=== PATIENT | female | born 1935 | race Two or more races ===

== ENCOUNTER 2016-07-11 12:03 | Inpatient (IN) | payer OTHER, MEDICAID ==
[~2016-07-11] VITALS: Ht 165.1 cm; Wt 70.3 kg
[2016-07-11] MEDS ORDERED: SODIUM CHLORIDE 0.9% 500 ML IVB ONE (12:15)
[2016-07-11 12:48] LABS: Basophils # (auto) 0 uL; Basophils % (auto) 0.5 % (0.0-2.0); Eosinophils # (auto) 0.1 uL; Eosinophils % (auto) 2.1 % (0.0-7.0); Hematocrit 45.1 % (36.0-46.0); Hemoglobin 14.8 g/dL (12.2-16.2); Lymphocytes # (auto) 0.9 uL; Lymphocytes % (auto) 18.1 % (10.0-50.0); Mean Corpuscular Hemoglobin 30.3 pg (28.0-32.0); Mean Corpuscular Hgb Conc. 32.8 g/dL (32.0-36.0); Mean Corpuscular Volume 92.4 fL (80.0-100.0); Mean Platelet Volume 8.5 fL (7.4-10.4); Monocytes # (auto) 0.2 uL; Monocytes % (auto) 4.5 % (0.0-12.0); Neutrophils # (auto) 3.8 uL; Neutrophils % (auto) 74.8 % (37.0-80.0); Platelet Count (auto) 283 10^3/uL (140-450); Red Cell Distribution Width 14.1 % (11.6-16.0); White Blood Cell 5.1 10^3/uL (4.4-10.8)
[2016-07-11 13:01] LABS: INR 1.04 (0.9-1.15); Partial Thromboplastin Time 21.9 sec (22.64-33.71); Prothrombin Time 10.7 sec (9.37-12.3)
[2016-07-11 13:08] LABS: Albumin 3.5 g/dL (3.4-5.0); BUN/Creatinine Ratio 20.5; Bilirubin, Total 0.4 mg/dL (0.2-1.0); Magnesium 2.4 mg/dL (1.6-2.6); Potassium 4.3 mmol/L (3.5-5.1); Total Protein 7.1 g/dL (6.4-8.2)
[2016-07-11] MEDS ORDERED: ATOR10TA PO (14:50)
[2016-07-11] MEDS ORDERED: ISOS30TA4 PO (14:50)
[2016-07-11] MEDS ORDERED: LORA-622 PO (14:50)
[2016-07-11] MEDS ORDERED: QUET50TA PO (14:52)
[2016-07-11] MEDS ORDERED: CARV12.544 PO (14:52)
[2016-07-11] MEDS ORDERED: TIMO0.5S40 EACHEYE (14:52)
[2016-07-11] MEDS ORDERED: AMLO-412 PO (14:52)
[2016-07-11] MEDS ORDERED: RIV15T PO (14:52)
[2016-07-11] MEDS ORDERED: SERT-274 PO (14:52)
[2016-07-11 15:41] LABS: B-Type Natriuretic Peptide 93.41 pg/mL (0-100)
[2016-07-11] MEDS ORDERED: DEXTROSE (50%) 50ML SYRG IV PRN (18:45)
[2016-07-11] MEDS ORDERED: VALSARTAN 80 MG TAB PO ONE (18:57)
[2016-07-11] MEDS ORDERED: HYDROcodone-ACET 5/325MG TAB PO PRN (19:00)
[2016-07-11] MEDS ORDERED: TEMAZEPAM 15 MG CAP PO PRN (19:00)
[2016-07-11] MEDS ORDERED: ONDANSETRON HCL 4 MG/2 ML VIAL IV PRN (19:00)
[2016-07-11] MEDS ORDERED: ASPirin-EC 81 mg tab PO ONE (19:00)
[2016-07-11] MEDS: RIVAROXABAN 15 MG TAB PO SCH (19:00)
[2016-07-11] MEDS ORDERED: LORATADINE 10 MG TAB PO ONE (19:00)
[2016-07-11] MEDS ORDERED: ACETAMINOPHEN 325 MG TAB PO PRN (19:00)
[2016-07-11] MEDS ORDERED: SERTRALINE HCL 50 MG TAB PO ONE (19:00)
[2016-07-11] MEDS ORDERED: MORPHINE SULF INJ 2 MG/ML SYRINGE 1ML IV PRN ×2 (19:00)
[2016-07-11] MEDS ORDERED: ISOSORBIDE MONONITRATE 60 MG TAB PO ONE (19:00)
[2016-07-11] MEDS ORDERED: NITROGLYCERIN 0.4 MG SL TAB SL PRN (19:00)
[2016-07-11] MEDS ORDERED: DOCUSATE SOD 100 MG CAP PO PRN (19:00)
[2016-07-11] MEDS ORDERED: amLODIPine BESYLATE 5 MG TAB PO ONE (19:00)
[2016-07-11] MEDS: FAMOTIDINE 20 MG TAB PO SCH (21:13)
[2016-07-11] MEDS: MULTIPLE VITAMIN TAB PO SCH (21:16)
[2016-07-11 21:38] VITALS: BP 152/85
[2016-07-11] MEDS: ATORVASTATIN 20 MG TAB PO SCH (22:00)
[2016-07-11] MEDS: ACCU-CHEK COMFORT CURVE STRIP VI SCH (22:00)
[2016-07-11] MEDS: InsuLIN REG 1unit/0.01ml Soln (100units/ml) SC SCH (22:00)
[2016-07-11] MEDS: CARVEDILOL 3.125 MG TAB PO SCH (23:09)
[2016-07-11] MEDS: SODIUM CHLOR 0.9% PF (SALINE LOCK) 10ML VIAL IV SCH (23:13)
[2016-07-12 03:59] LABS: Urine RBC None Seen /hpf (0 - 4)
[2016-07-12 04:59] LABS: Urine Bilirubin Negative (Negative); Urine Blood Negative /uL (Negative); Urine Color Colorless (Yellow); Urine Glucose Normal (Normal); Urine Ketone Negative (Negative); Urine Nitrite Negative (Negative); Urine Urobilinogen Normal (Negative); Urine pH 5.5 (5.0-8.0)
[2016-07-12 05:34] VITALS: BP 133/71
[2016-07-12] MEDS: SODIUM CHLOR 0.9% PF (SALINE LOCK) 10ML VIAL IV SCH ×3 (05:53→21:22)
[2016-07-12 06:26] LABS: Basophils # (auto) 0 uL; Basophils % (auto) 0.6 % (0.0-2.0); Eosinophils # (auto) 0.1 uL; Eosinophils % (auto) 2.2 % (0.0-7.0); Hematocrit 40.3 % (36.0-46.0); Hemoglobin 13.6 g/dL (12.2-16.2); Lymphocytes # (auto) 1.4 uL; Lymphocytes % (auto) 28.5 % (10.0-50.0); Mean Corpuscular Hemoglobin 30.6 pg (28.0-32.0); Mean Corpuscular Hgb Conc. 33.6 g/dL (32.0-36.0); Mean Corpuscular Volume 90.9 fL (80.0-100.0); Mean Platelet Volume 8.9 fL (7.4-10.4); Monocytes # (auto) 0.4 uL; Monocytes % (auto) 8.3 % (0.0-12.0); Neutrophils # (auto) 3.1 uL; Neutrophils % (auto) 60.4 % (37.0-80.0); Platelet Count (auto) 225 10^3/uL (140-450); White Blood Cell 5.1 10^3/uL (4.4-10.8)
[2016-07-12 06:31] LABS: Albumin 3.3 g/dL (3.4-5.0); BUN/Creatinine Ratio 20.2; Bilirubin, Total 0.4 mg/dL (0.2-1.0); Calcium 8.6 mg/dL (8.5-10.1); Potassium 3.8 mmol/L (3.5-5.1); Total Protein 6.3 g/dL (6.4-8.2)
[2016-07-12] MEDS: ACCU-CHEK COMFORT CURVE STRIP VI SCH ×4 (06:39→21:23)
[2016-07-12] MEDS: InsuLIN REG 1unit/0.01ml Soln (100units/ml) SC SCH ×4 (06:39→21:23)
[2016-07-12 08:47] VITALS: BP 141/70
[2016-07-12] MEDS: VALSARTAN 80 MG TAB PO SCH (10:05)
[2016-07-12] MEDS: ISOSORBIDE MONONITRATE 60 MG TAB PO SCH (10:06)
[2016-07-12] MEDS: CARVEDILOL 3.125 MG TAB PO SCH ×2 (10:08→21:22)
[2016-07-12] MEDS: FAMOTIDINE 20 MG TAB PO SCH (10:08)
[2016-07-12] MEDS: MULTIPLE VITAMIN TAB PO SCH (10:09)
[2016-07-12] MEDS: ASPirin-EC 81 mg tab PO SCH (10:09)
[2016-07-12] MEDS: amLODIPine BESYLATE 5 MG TAB PO SCH (10:09)
[2016-07-12] MEDS: LORATADINE 10 MG TAB PO SCH (10:09)
[2016-07-12] MEDS: SERTRALINE HCL 50 MG TAB PO SCH (10:09)
[2016-07-12 13:00] VITALS: BP 109/46
[2016-07-12 17:00] VITALS: BP 140/74
[2016-07-12] MEDS: TIMOLOL MAL 0.5% OPTH(EYE) SOL 5ML EACHEYE SCH (17:08)
[2016-07-12] MEDS: RIVAROXABAN 15 MG TAB PO SCH (18:30)
[2016-07-12] MEDS: ATORVASTATIN 20 MG TAB PO SCH (21:23)
[2016-07-12 22:00] VITALS: BP 161/87
[2016-07-13 05:55] VITALS: BP 137/66
[2016-07-13] MEDS: InsuLIN REG 1unit/0.01ml Soln (100units/ml) SC SCH ×4 (06:11→21:45)
[2016-07-13] MEDS: ACCU-CHEK COMFORT CURVE STRIP VI SCH ×4 (06:11→21:45)
[2016-07-13] MEDS: SODIUM CHLOR 0.9% PF (SALINE LOCK) 10ML VIAL IV SCH ×3 (06:12→21:44)
[2016-07-13 06:36] LABS: BUN/Creatinine Ratio 19.2; Calcium 8.5 mg/dL (8.5-10.1); Magnesium 2.3 mg/dL (1.6-2.6); Phosphorus 3.6 mg/dL (2.6-4.90)
[2016-07-13 07:39] LABS: Basophils # (auto) 0.1 uL; Basophils % (auto) 1.5 % (0.0-2.0); Eosinophils # (auto) 0.1 uL; Eosinophils % (auto) 2.8 % (0.0-7.0); Hematocrit 41.4 % (36.0-46.0); Hemoglobin 13.8 g/dL (12.2-16.2); Lymphocytes # (auto) 1.5 uL; Lymphocytes % (auto) 30.9 % (10.0-50.0); Mean Corpuscular Hemoglobin 30.8 pg (28.0-32.0); Mean Corpuscular Hgb Conc. 33.2 g/dL (32.0-36.0); Mean Corpuscular Volume 92.6 fL (80.0-100.0); Mean Platelet Volume 9.2 fL (7.4-10.4); Monocytes # (auto) 0.6 uL; Monocytes % (auto) 11.7 % (0.0-12.0); Neutrophils # (auto) 2.5 uL; Neutrophils % (auto) 53.1 % (37.0-80.0); Platelet Count (auto) 178 10^3/uL (140-450); Red Cell Distribution Width 13.1 % (11.6-16.0); White Blood Cell 4.8 10^3/uL (4.4-10.8)
[2016-07-13 09:00] VITALS: BP 117/51
[2016-07-13] MEDS: ISOSORBIDE MONONITRATE 60 MG TAB PO SCH (10:00)
[2016-07-13] MEDS: VALSARTAN 80 MG TAB PO SCH (10:00)
[2016-07-13] MEDS: amLODIPine BESYLATE 5 MG TAB PO SCH (10:00)
[2016-07-13] MEDS: TIMOLOL MAL 0.5% OPTH(EYE) SOL 5ML EACHEYE SCH (10:00)
[2016-07-13] MEDS: CARVEDILOL 3.125 MG TAB PO SCH ×2 (10:00→21:45)
[2016-07-13] MEDS: LORATADINE 10 MG TAB PO SCH (12:37)
[2016-07-13] MEDS: ASPirin-EC 81 mg tab PO SCH (12:38)
[2016-07-13] MEDS: MULTIPLE VITAMIN TAB PO SCH (12:39)
[2016-07-13] MEDS: FAMOTIDINE 20 MG TAB PO SCH (12:39)
[2016-07-13] MEDS: SERTRALINE HCL 50 MG TAB PO SCH (12:39)
[2016-07-13 13:00] VITALS: BP 114/56
[2016-07-13 16:57] LABS: Vitamin B12 785 pg/mL (211-911)
[2016-07-13 17:00] VITALS: BP 161/74
[2016-07-13 17:01] LABS: Temperature: 22.7 C (20.0-25.0)
[2016-07-13] MEDS ORDERED: METOPROLOL TARTRATE 1MG/1ML-5ML VIAL IV ONE (17:30)
[2016-07-13] MEDS: RIVAROXABAN 15 MG TAB PO SCH (18:56)
[2016-07-13] MEDS: ATORVASTATIN 20 MG TAB PO SCH (21:45)
[2016-07-13 22:00] VITALS: BP 139/68
[2016-07-14 05:36] VITALS: BP 144/70
[2016-07-14] MEDS: SODIUM CHLOR 0.9% PF (SALINE LOCK) 10ML VIAL IV SCH ×2 (06:00→15:31)
[2016-07-14 06:01] LABS: Basophils # (auto) 0 uL; Basophils % (auto) 0.4 % (0.0-2.0); Eosinophils # (auto) 0.1 uL; Eosinophils % (auto) 2.2 % (0.0-7.0); Hematocrit 41.9 % (36.0-46.0); Hemoglobin 13.8 g/dL (12.2-16.2); Lymphocytes # (auto) 1.5 uL; Lymphocytes % (auto) 30.1 % (10.0-50.0); Mean Corpuscular Hemoglobin 30.2 pg (28.0-32.0); Mean Corpuscular Hgb Conc. 32.8 g/dL (32.0-36.0); Mean Platelet Volume 8.6 fL (7.4-10.4); Monocytes # (auto) 0.5 uL; Monocytes % (auto) 10.3 % (0.0-12.0); Neutrophils # (auto) 2.8 uL; Platelet Count (auto) 253 10^3/uL (140-450); Red Cell Distribution Width 14.3 % (11.6-16.0)
[2016-07-14 06:15] LABS: Magnesium 2.5 mg/dL (1.6-2.6); Potassium 4.7 mmol/L (3.5-5.1)
[2016-07-14 06:17] LABS: BUN/Creatinine Ratio 20.8; Calcium 8.3 mg/dL (8.5-10.1)
[2016-07-14] MEDS: InsuLIN REG 1unit/0.01ml Soln (100units/ml) SC SCH ×2 (07:00→11:30)
[2016-07-14] MEDS: ACCU-CHEK COMFORT CURVE STRIP VI SCH ×2 (07:00→11:30)
[2016-07-14 09:00] VITALS: BP 139/62
[2016-07-14] MEDS: VALSARTAN 80 MG TAB PO SCH (09:38)
[2016-07-14] MEDS: MULTIPLE VITAMIN TAB PO SCH (09:39)
[2016-07-14] MEDS: CARVEDILOL 3.125 MG TAB PO SCH (09:39)
[2016-07-14] MEDS: amLODIPine BESYLATE 5 MG TAB PO SCH (09:39)
[2016-07-14] MEDS: LORATADINE 10 MG TAB PO SCH (09:40)
[2016-07-14] MEDS: SERTRALINE HCL 50 MG TAB PO SCH (09:40)
[2016-07-14] MEDS: FAMOTIDINE 20 MG TAB PO SCH (09:40)
[2016-07-14] MEDS: ASPirin-EC 81 mg tab PO SCH (09:41)
[2016-07-14] MEDS: ISOSORBIDE MONONITRATE 60 MG TAB PO SCH (09:41)
[2016-07-14] MEDS: TIMOLOL MAL 0.5% OPTH(EYE) SOL 5ML EACHEYE SCH (09:42)
[2016-07-14 13:00] VITALS: BP 121/52
[2016-07-14 17:00] VITALS: BP 116/53
[2016-07-14 17:04] VITALS: BP 124/89
== END 2016-07-14 18:30 | disposition home health service (06) | DRG 315 ==
LOC: ER 12:10 → TELE 12:11 → TELE-WESTW 21:23
PROVIDERS: ADMIT Internal Medicine; ATTEND Internal Medicine
DX: I95.9 Hypotension, unspecified (principal); I13.0 Hypertensive heart and chronic kidney disease with heart failure and stage 1 through stage 4 chronic kidney disease, or unspecified chronic kidney disease; I50.42 Chronic combined systolic (congestive) and diastolic (congestive) heart failure; S42.434A Nondisplaced fracture (avulsion) of lateral epicondyle of right humerus, initial encounter for closed fracture; G90.8 Other disorders of autonomic nervous system; R42 Dizziness and giddiness; E11.21 Type 2 diabetes mellitus with diabetic nephropathy; E11.22 Type 2 diabetes mellitus with diabetic chronic kidney disease; E11.65 Type 2 diabetes mellitus with hyperglycemia; E78.5 Hyperlipidemia, unspecified; F32.9 Major depressive disorder, single episode, unspecified; F41.9 Anxiety disorder, unspecified; H40.9 Unspecified glaucoma; I25.10 Atherosclerotic heart disease of native coronary artery without angina pectoris; I34.0 Nonrheumatic mitral (valve) insufficiency; I67.2 Cerebral atherosclerosis; M10.9 Gout, unspecified; N18.3 Chronic kidney disease, stage 3 (moderate); S50.11XA Contusion of right forearm, initial encounter; W19.XXXA Unspecified fall, initial encounter; Z95.5 Presence of coronary angioplasty implant and graft; Z79.899 Other long term (current) drug therapy; Z79.01 Long term (current) use of anticoagulants; Y93.89 Activity, other specified; Y92.89 Other specified places as the place of occurrence of the external cause; Z82.49 Family history of ischemic heart disease and other diseases of the circulatory system
CPT/HCPCS: 36415; 70450; 71010; 73080; 73090; 80048; 80053; 81001; 82607; 82746; 82962; 83036; 83735; 83880; 84100; 84443; 84484; 85025; 85610; 85730; 87040; 92610; 93005; 93306; 93886; 96360; 97001

== ENCOUNTER 2017-01-10 09:32 | Inpatient (IN) | payer OTHER, MEDICAID ==
[~2017-01-10] VITALS: Ht 160 cm; Wt 71.1 kg
[~2017-01-10 09:32] MED LIST: AMLO-412 PO; ATOR10TA PO; CARV12.544 PO; ISOS30TA4 PO; LORA-622 PO; QUET50TA PO; RIV15T PO; SERT-274 PO; TIMO0.5S40 EACHEYE
[2017-01-10] MEDS ORDERED: ENOXAPARIN SOD 100 MG/1 ML SYRINGE SC ONE (10:30)
[2017-01-10 11:16] LABS: Basophils # (auto) 0 uL; Basophils % (auto) 0.2 % (0.0-2.0); CONDITION Y; Eosinophils # (auto) 0 uL; Eosinophils % (auto) 0.4 % (0.0-7.0); Hematocrit 44.3 % (36.0-46.0); Hemoglobin 14.9 g/dL (12.2-16.2); Lymphocytes # (auto) 1.4 uL; Lymphocytes % (auto) 13.7 % (10.0-50.0); Mean Corpuscular Hemoglobin 31.3 pg (28.0-32.0); Mean Corpuscular Hgb Conc. 33.7 g/dL (32.0-36.0); Mean Platelet Volume 7.7 fL (7.4-10.4); Monocytes # (auto) 0.9 uL; Monocytes % (auto) 9.3 % (0.0-12.0); Neutrophils # (auto) 7.5 uL; Neutrophils % (auto) 76.4 % (37.0-80.0); Platelet Count (auto) 256 10^3/uL (140-450); Red Cell Distribution Width 14.6 % (11.6-16.0); White Blood Cell 9.9 10^3/uL (4.4-10.8)
[2017-01-10 11:29] LABS: INR 0.98 (0.9-1.15); Prothrombin Time 10.7 sec (9.37-12.3)
[2017-01-10 11:42] LABS: Albumin 3.4 g/dL (3.4-5.0); Alkaline Phosphatase 87 U/L (45-117); Anion Gap 9 (5-15); Aspartate Aminotransferase 21 U/L (15-37); BUN/Creatinine Ratio 15.1; Bilirubin, Total 0.6 mg/dL (0.2-1.0); Blood Urea Nitrogen 18 mg/dL (7-18); Calcium 8.7 mg/dL (8.5-10.1); Carbon Dioxide 24 mmol/L (21-32); Chloride 99 mmol/L (98-107); GFR African American 56 mL/min; GFR Non-African American 46 mL/min; Glucose 108 mg/dL (74-106); Magnesium 2.8 mg/dL (1.6-2.6); Potassium 4.2 mmol/L (3.5-5.1); Sodium 132 mmol/L (136-145); Total Protein 7.7 g/dL (6.4-8.2)
[2017-01-10] MEDS: SODIUM CHLOR 0.9% PF (SALINE LOCK) 10ML VIAL IV SCH ×2 (14:00→21:52)
[2017-01-10] MEDS ORDERED: HYDROcodone-ACET 5/325MG TAB PO PRN (14:00)
[2017-01-10] MEDS ORDERED: DOCUSATE SOD 100 MG CAP PO PRN (14:00)
[2017-01-10] MEDS ORDERED: cloNIDine HCL 0.1 MG TAB PO PRN (14:00)
[2017-01-10] MEDS ORDERED: TEMAZEPAM 15 MG CAP PO PRN (14:00)
[2017-01-10] MEDS ORDERED: ONDANSETRON HCL 4 MG/2 ML VIAL IV PRN (14:00)
[2017-01-10] MEDS ORDERED: NITROGLYCERIN 0.4 MG SL TAB SL PRN (14:00)
[2017-01-10] MEDS ORDERED: MORPHINE SULFATE 4 MG/ML SYRG IV PRN ×2 (14:00)
[2017-01-10] MEDS ORDERED: ACETAMINOPHEN 325 MG TAB PO PRN (14:00)
[2017-01-10] MEDS ORDERED: HCTZ 25 MG TAB PO ONE (14:15)
[2017-01-10] MEDS ORDERED: FAMOTIDINE 20 MG TAB PO ONE (14:15)
[2017-01-10] MEDS ORDERED: LORATADINE 10 MG TAB PO ONE (14:15)
[2017-01-10] MEDS ORDERED: SERTRALINE HCL 50 MG TAB PO ONE (14:15)
[2017-01-10] MEDS ORDERED: PROMETHAZINE-DM 5 ML ORAL SYRUP PO PRN (14:15)
[2017-01-10] MEDS ORDERED: QUEtiapine FUMARATE 25 MG TAB PO ONE (14:15)
[2017-01-10] MEDS ORDERED: VALSARTAN 80 MG TAB PO ONE (14:15)
[2017-01-10] MEDS ORDERED: cefTRIAXone 1GM/50ML D5W 50 ML IV ONE (14:15)
[2017-01-10] MEDS ORDERED: amLODIPine BESYLATE 5 MG TAB PO ONE (14:15)
[2017-01-10] MEDS ORDERED: ISOSORBIDE MONONITRATE 60 MG TAB PO ONE (14:15)
[2017-01-10] MEDS ORDERED: CARVEDILOL 3.125 MG TAB PO ONE (14:15)
[2017-01-10 14:56] LABS: Urine Bilirubin Negative (Negative); Urine Blood Negative /uL (Negative); Urine Color Yellow (Yellow); Urine Glucose Normal (Normal); Urine Ketone TRACE (Negative); Urine Mucus FEW (None Seen); Urine Nitrite Negative (Negative); Urine RBC <1 /hpf (0 - 4); Urine Squamous Epithelial Cell FEW /hpf (<5); Urine Urobilinogen Normal (Negative); Urine pH 5.5 (5.0-8.0)
[2017-01-10] MEDS ORDERED: ONDANSETRON HCL 4 MG/2 ML VIAL ONE (17:22)
[2017-01-10 20:12] VITALS: BP 119/59
[2017-01-10 21:31] VITALS: BP 119/59
[2017-01-10] MEDS: CARVEDILOL 3.125 MG TAB PO SCH ×2 (21:53→22:00)
[2017-01-10] MEDS: ENOXAPARIN SOD 80 MG/0.8ML SYRINGE SC SCH (21:54)
[2017-01-10] MEDS: QUEtiapine FUMARATE 25 MG TAB PO SCH (21:54)
[2017-01-10] MEDS: ATORVASTATIN 20 MG TAB PO SCH (21:54)
[2017-01-10] MEDS ORDERED: ENOXAPARIN SOD 100 MG/1 ML SYRINGE SC SCH (22:00)
[2017-01-10] MEDS ORDERED: FAMOTIDINE 20 MG TAB PO SCH (22:00)
[2017-01-11] VITALS (7 sets, daily range): BP systolic 95–142; BP diastolic 38–67
[2017-01-11 06:08] LABS: Basophils # (auto) 0 uL; Basophils % (auto) 0.4 % (0.0-2.0); CONDITION Y; Eosinophils # (auto) 0 uL; Eosinophils % (auto) 0.4 % (0.0-7.0); Hemoglobin 12.6 g/dL (12.2-16.2); Lymphocytes # (auto) 1.7 uL; Lymphocytes % (auto) 20.2 % (10.0-50.0); Mean Corpuscular Hemoglobin 31.2 pg (28.0-32.0); Mean Corpuscular Volume 91.8 fL (80.0-100.0); Mean Platelet Volume 7.7 fL (7.4-10.4); Monocytes # (auto) 0.8 uL; Monocytes % (auto) 9.4 % (0.0-12.0); Neutrophils # (auto) 5.9 uL; Neutrophils % (auto) 69.6 % (37.0-80.0); Platelet Count (auto) 235 10^3/uL (140-450); Red Cell Distribution Width 14.4 % (11.6-16.0); White Blood Cell 8.5 10^3/uL (4.4-10.8)
[2017-01-11] MEDS: SODIUM CHLOR 0.9% PF (SALINE LOCK) 10ML VIAL IV SCH ×3 (06:18→21:16)
[2017-01-11 06:25] LABS: Albumin 2.7 g/dL (3.4-5.0); BUN/Creatinine Ratio 21.4; Bilirubin, Total 0.4 mg/dL (0.2-1.0); Calcium 8.3 mg/dL (8.5-10.1); Potassium 4.2 mmol/L (3.5-5.1); Total Protein 6.3 g/dL (6.4-8.2)
[2017-01-11] MEDS: cefTRIAXone 1GM/50ML D5W 50 ML IV SCH (08:18)
[2017-01-11] MEDS: LORATADINE 10 MG TAB PO SCH (09:21)
[2017-01-11] MEDS: MULTIPLE VITAMIN TAB PO SCH (09:21)
[2017-01-11] MEDS: FAMOTIDINE 20 MG TAB PO SCH (09:39)
[2017-01-11] MEDS: QUEtiapine FUMARATE 25 MG TAB PO SCH ×2 (09:39→21:15)
[2017-01-11] MEDS: ENOXAPARIN SOD 80 MG/0.8ML SYRINGE SC SCH (09:39)
[2017-01-11] MEDS: SERTRALINE HCL 50 MG TAB PO SCH (09:39)
[2017-01-11] MEDS: ISOSORBIDE MONONITRATE 60 MG TAB PO SCH (09:40)
[2017-01-11] MEDS: VALSARTAN 80 MG TAB PO SCH (09:40)
[2017-01-11] MEDS: amLODIPine BESYLATE 5 MG TAB PO SCH (09:40)
[2017-01-11] MEDS: CARVEDILOL 3.125 MG TAB PO SCH ×2 (09:41→22:00)
[2017-01-11] MEDS: TIMOLOL MAL 0.5% OPTH(EYE) SOL 5ML EACHEYE SCH (09:42)
[2017-01-11] MEDS: HCTZ 25 MG TAB PO SCH (10:00)
[2017-01-11] MEDS: APIXABAN 5 MG TAB PO SCH (21:15)
[2017-01-11] MEDS ORDERED: ENOXAPARIN SOD 80 MG/0.8ML SYRINGE SC SCH (22:00)
[2017-01-11] MEDS: ATORVASTATIN 20 MG TAB PO SCH (22:05)
[2017-01-12 05:09] VITALS: BP 126/58
[2017-01-12] MEDS: SODIUM CHLOR 0.9% PF (SALINE LOCK) 10ML VIAL IV SCH ×3 (06:14→22:09)
[2017-01-12] MEDS: cefTRIAXone 1GM/50ML D5W 50 ML IV SCH (09:00)
[2017-01-12 09:21] VITALS: BP 141/73
[2017-01-12] MEDS: TIMOLOL MAL 0.5% OPTH(EYE) SOL 5ML EACHEYE SCH (10:00)
[2017-01-12] MEDS: CARVEDILOL 3.125 MG TAB PO SCH ×2 (10:46→21:58)
[2017-01-12] MEDS: MULTIPLE VITAMIN TAB PO SCH (10:47)
[2017-01-12] MEDS: FAMOTIDINE 20 MG TAB PO SCH (10:47)
[2017-01-12] MEDS: APIXABAN 5 MG TAB PO SCH ×2 (10:47→21:57)
[2017-01-12] MEDS: SERTRALINE HCL 50 MG TAB PO SCH (10:47)
[2017-01-12] MEDS: QUEtiapine FUMARATE 25 MG TAB PO SCH ×2 (10:47→21:57)
[2017-01-12] MEDS: VALSARTAN 80 MG TAB PO SCH (10:48)
[2017-01-12] MEDS: ISOSORBIDE MONONITRATE 60 MG TAB PO SCH (10:49)
[2017-01-12] MEDS: amLODIPine BESYLATE 5 MG TAB PO SCH (10:49)
[2017-01-12] MEDS: LORATADINE 10 MG TAB PO SCH (10:50)
[2017-01-12] MEDS: HCTZ 25 MG TAB PO SCH (10:50)
[2017-01-12 13:00] VITALS: BP 120/63
[2017-01-12 17:31] VITALS: BP 101/70
[2017-01-12 20:00] VITALS: BP 133/68
[2017-01-12] MEDS: ATORVASTATIN 20 MG TAB PO SCH (21:57)
[2017-01-12 22:00] VITALS: BP 133/68
[2017-01-13 04:52] VITALS: BP 140/74
[2017-01-13] MEDS: SODIUM CHLOR 0.9% PF (SALINE LOCK) 10ML VIAL IV SCH ×3 (05:52→21:55)
[2017-01-13 08:00] VITALS: BP 140/74
[2017-01-13 09:00] VITALS: BP 146/78
[2017-01-13] MEDS: TIMOLOL MAL 0.5% OPTH(EYE) SOL 5ML EACHEYE SCH (09:38)
[2017-01-13] MEDS: HCTZ 25 MG TAB PO SCH (09:38)
[2017-01-13] MEDS: APIXABAN 5 MG TAB PO SCH ×2 (09:39→21:54)
[2017-01-13] MEDS: FAMOTIDINE 20 MG TAB PO SCH (09:39)
[2017-01-13] MEDS: CARVEDILOL 3.125 MG TAB PO SCH ×2 (09:39→21:55)
[2017-01-13] MEDS: ISOSORBIDE MONONITRATE 60 MG TAB PO SCH (09:39)
[2017-01-13] MEDS: VALSARTAN 80 MG TAB PO SCH (09:40)
[2017-01-13] MEDS: SERTRALINE HCL 50 MG TAB PO SCH (09:40)
[2017-01-13] MEDS: amLODIPine BESYLATE 5 MG TAB PO SCH (09:40)
[2017-01-13] MEDS: LORATADINE 10 MG TAB PO SCH (09:40)
[2017-01-13] MEDS: MULTIPLE VITAMIN TAB PO SCH (09:40)
[2017-01-13] MEDS: QUEtiapine FUMARATE 25 MG TAB PO SCH ×2 (09:41→21:54)
[2017-01-13 13:00] VITALS: BP 99/42
[2017-01-13 17:02] VITALS: BP 119/67
[2017-01-13] MEDS: ATORVASTATIN 20 MG TAB PO SCH (21:54)
[2017-01-13 22:00] VITALS: BP 138/78
[2017-01-14 05:00] VITALS: BP 130/74
[2017-01-14] MEDS: SODIUM CHLOR 0.9% PF (SALINE LOCK) 10ML VIAL IV SCH (06:32)
[2017-01-14 08:00] VITALS: BP 130/70
[2017-01-14 08:45] VITALS: BP 132/68
[2017-01-14] MEDS: TIMOLOL MAL 0.5% OPTH(EYE) SOL 5ML EACHEYE SCH (10:07)
[2017-01-14] MEDS: LORATADINE 10 MG TAB PO SCH (10:08)
[2017-01-14] MEDS: MULTIPLE VITAMIN TAB PO SCH (10:08)
[2017-01-14] MEDS: SERTRALINE HCL 50 MG TAB PO SCH (10:08)
[2017-01-14] MEDS: APIXABAN 5 MG TAB PO SCH (10:09)
[2017-01-14] MEDS: QUEtiapine FUMARATE 25 MG TAB PO SCH (10:09)
[2017-01-14] MEDS: FAMOTIDINE 20 MG TAB PO SCH (10:10)
[2017-01-14] MEDS: amLODIPine BESYLATE 5 MG TAB PO SCH (10:11)
[2017-01-14] MEDS: CARVEDILOL 3.125 MG TAB PO SCH (10:12)
[2017-01-14] MEDS: VALSARTAN 80 MG TAB PO SCH (10:15)
[2017-01-14] MEDS: ISOSORBIDE MONONITRATE 60 MG TAB PO SCH (10:16)
[2017-01-14] MEDS: HCTZ 25 MG TAB PO SCH (10:16)
[2017-01-14] MEDS ORDERED: HYDR-4663 PO (11:08)
[2017-01-14] MEDS ORDERED: APIX5TAB PO (11:08)
[2017-01-14 13:00] VITALS: BP 142/71
[2017-01-14 16:51] VITALS: BP 132/68
[2017-01-14 17:00] VITALS: BP 113/64
[2017-01-18] MEDS ORDERED: APIXABAN 5 MG TAB PO SCH (22:00)
== END 2017-01-14 17:35 | disposition home health service (06) | DRG 300 ==
LOC: ER 09:32 → TELE 09:33 → TELE-WESTW 20:12
PROVIDERS: ADMIT Internal Medicine; ATTEND Internal Medicine
DX: I82.811 Embolism and thrombosis of superficial veins of right lower extremity (principal); I13.0 Hypertensive heart and chronic kidney disease with heart failure and stage 1 through stage 4 chronic kidney disease, or unspecified chronic kidney disease; I50.40 Unspecified combined systolic (congestive) and diastolic (congestive) heart failure; E87.1 Hypo-osmolality and hyponatremia; I25.10 Atherosclerotic heart disease of native coronary artery without angina pectoris; N18.3 Chronic kidney disease, stage 3 (moderate); E83.41 Hypermagnesemia; J40 Bronchitis, not specified as acute or chronic; F32.9 Major depressive disorder, single episode, unspecified; E78.5 Hyperlipidemia, unspecified; Z79.899 Other long term (current) drug therapy; Z82.49 Family history of ischemic heart disease and other diseases of the circulatory system; Z86.718 Personal history of other venous thrombosis and embolism; Z91.19 Patient's noncompliance with other medical treatment and regimen
CPT/HCPCS: 36415; 71020; 71250; 80053; 81001; 83735; 84484; 85025; 85610; 87070; 87205; 93005; 93971; 96365; 96372; 97110; 97116; 97163; 97530; J0696; J2405

== ENCOUNTER 2019-05-15 20:20 | Emergency (ER) | payer OTHER, MEDICAID ==
[~2019-05-15] VITALS: Ht 157.5 cm; Wt 68.0 kg
[~2019-05-15 20:20] MED LIST changes: +APIX5TAB PO; +HYDR-4833 PO; -RIV15T PO; -TIMO0.5S40 EACHEYE; +TIMO0.5S67 EACHEYE
[2019-05-15 21:33] LABS: Basophils # (auto) 0 uL; Basophils % (auto) 0.4 % (0.0-2.0); Eosinophils # (auto) 0.1 uL; Eosinophils % (auto) 1.9 % (0.0-7.0); Hematocrit 42.4 % (36.0-46.0); Hemoglobin 14.3 g/dL (12.2-16.2); Lymphocytes # (auto) 0.8 uL; Lymphocytes % (auto) 17.5 % (10.0-50.0); Mean Corpuscular Hemoglobin 31.9 pg (28.0-32.0); Mean Corpuscular Hgb Conc. 33.7 g/dL (32.0-36.0); Mean Corpuscular Volume 94.5 fL (80.0-100.0); Monocytes # (auto) 0.4 uL; Monocytes % (auto) 8.4 % (0.0-12.0); Neutrophils # (auto) 3.4 uL; Neutrophils % (auto) 71.8 % (37.0-80.0); Nucleated Red Blood Cells % 0.1 %; Platelet Count (auto) 221 10^3/uL (140-450); Red Blood Cells 4.48 10^6/uL (4.0-5.20); Red Cell Distribution Width 14.5 % (11.8-14.3); White Blood Cell 4.7 10^3/uL (4.4-10.8)
[2019-05-15 21:50] LABS: Albumin 3.4 g/dL (3.4-5.0); Calcium 8.4 mg/dL (8.5-10.1); Potassium 4.4 mmol/L (3.5-5.1)
[2019-05-15 21:53] LABS: BUN/Creatinine Ratio 24.5; Bilirubin, Total 0.2 mg/dL (0.2-1.0); Total Protein 6.9 g/dL (6.4-8.2)
[2019-05-15 22:29] LABS: Urine Bacteria NONE SEEN /hpf (None Seen); Urine Blood Negative /uL (Negative); Urine Mucus FEW (None Seen); Urine Specific Gravity 1.007 (1.001-1.035); Urine WBC 7 /hpf (0 - 5)
[2019-05-15] MEDS ORDERED: cloNIDine HCL 0.1 MG TAB PO ONE (22:30)
[2019-05-16] VITALS: BP 157/70
== END 2019-05-16 01:12 | disposition home or self-care (01) ==
LOC: ER 20:20
DX: I11.0 Hypertensive heart disease with heart failure (principal); I50.9 Heart failure, unspecified; I25.10 Atherosclerotic heart disease of native coronary artery without angina pectoris; F32.9 Major depressive disorder, single episode, unspecified; E78.5 Hyperlipidemia, unspecified; Z79.899 Other long term (current) drug therapy
CPT/HCPCS: 36415; 80053; 81001; 85025; 93005

== ENCOUNTER 2022-03-30 12:58 | Inpatient (IN) | payer OTHER, MEDICAID ==
[~2022-03-30] VITALS: Ht 157.5 cm; Wt 68.2 kg
[~2022-03-30 12:58] MED LIST changes: -CARV12.544 PO; +CLON0.1T PO; +ISOS1TAB28 PO; -ISOS30TA4 PO; +OMEP20TA PO; +RIZA10TA50 PO; -SERT-274 PO; +SERT50TA19 PO; +TIMO0.5S28 EACHEYE; -TIMO0.5S67 EACHEYE
[2022-03-30 13:51] LABS: Basophils # (auto) 0 10 ^3/uL (0-0.2); Basophils % (auto) 0.6 % (0.0-2.0); Eosinophils # (auto) 0 10 ^3/uL (0-0.8); Eosinophils % (auto) 0.6 % (0.0-7.0); Hematocrit 47.9 % (36.0-46.0); Hemoglobin 16.1 g/dL (12.2-16.2); Lymphocytes # (auto) 1.5 10 ^3/uL (0.4-5.4); Lymphocytes % (auto) 28.1 % (10.0-50.0); Mean Corpuscular Hemoglobin 31.5 pg (28.0-32.0); Mean Corpuscular Hgb Conc. 33.5 g/dL (32.0-36.0); Mean Corpuscular Volume 94.1 fL (80.0-100.0); Monocytes # (auto) 0.5 10 ^3/uL (0-1.3); Monocytes % (auto) 8.8 % (0.0-12.0); Neutrophils # (auto) 3.4 10 ^3/uL (1.6-8.6); Neutrophils % (auto) 61.9 % (37.0-80.0); Nucleated Red Blood Cells % 0.1 %; Red Blood Cells 5.09 10^6/uL (4.0-5.20); White Blood Cell 5.5 10^3/uL (4.4-10.8)
[2022-03-30 14:09] LABS: Albumin 3.7 g/dL (3.4-5.0); Potassium 4.1 mmol/L (3.5-5.1)
[2022-03-30 14:13] LABS: BUN/Creatinine Ratio 20.2; Bilirubin, Total 0.5 mg/dL (0.2-1.0); Total Protein 7.6 g/dL (6.4-8.2)
[2022-03-30] MEDS ORDERED: MORPHINE SULFATE 4 MG/ML SYR/VIAL IV PRN (16:15)
[2022-03-30] MEDS ORDERED: METOPROLOL TARTRATE 1MG/1ML-5ML VIAL IV PRN (16:15)
[2022-03-30] MEDS ORDERED: ACETAMINOPHEN 325 MG TAB PO PRN (16:15)
[2022-03-30] MEDS ORDERED: ALUM & MAG HYDROX-SIMETH LIQ(MAALOX) 30 ML PO ONE (16:15)
[2022-03-30] MEDS ORDERED: MORPHINE SULFATE INJ 2 MG/ml SYRG IV PRN (16:15)
[2022-03-30] MEDS ORDERED: NITROGLYCERIN 0.4 MG SL TAB SL PRN ×2 (16:15)
[2022-03-30 17:38] LABS: Magnesium 2.3 mg/dL (1.6-2.6)
[2022-03-30 19:51] LABS: INR 1.03 (0.9-1.15)
[2022-03-30] MEDS: APIXABAN 5 MG TAB PO SCH (21:40)
[2022-03-30] MEDS ORDERED: ATORVASTATIN 20 MG TAB PO ONE (22:00)
[2022-03-30 22:01] LABS: Urine Bacteria NONE SEEN /hpf (None Seen); Urine Blood Negative /uL (Negative); Urine Hyaline Cast FEW /lpf (0 - 2); Urine Mucus FEW (None Seen); Urine Specific Gravity 1.017 (1.001-1.035); Urine WBC <1 /hpf (0 - 5)
[2022-03-31] VITALS (12 sets, daily range): BP systolic 70–191; BP diastolic 31–84
[2022-03-31 06:09] LABS: Basophils # (auto) 0 10 ^3/uL (0-0.2); Basophils % (auto) 0.4 % (0.0-2.0); Eosinophils # (auto) 0.1 10 ^3/uL (0-0.8); Eosinophils % (auto) 1.3 % (0.0-7.0); Hematocrit 49.7 % (36.0-46.0); Hemoglobin 16.5 g/dL (12.2-16.2); Lymphocytes # (auto) 2.1 10 ^3/uL (0.4-5.4); Lymphocytes % (auto) 30.3 % (10.0-50.0); Mean Corpuscular Hemoglobin 31.6 pg (28.0-32.0); Mean Corpuscular Hgb Conc. 33.1 g/dL (32.0-36.0); Mean Corpuscular Volume 95.3 fL (80.0-100.0); Monocytes # (auto) 0.7 10 ^3/uL (0-1.3); Monocytes % (auto) 10.4 % (0.0-12.0); Neutrophils % (auto) 57.6 % (37.0-80.0); Nucleated Red Blood Cells % 0.1 %; Red Blood Cells 5.22 10^6/uL (4.0-5.20); Red Cell Distribution Width 14.9 % (11.8-14.3)
[2022-03-31 06:11] LABS: Albumin 3.7 g/dL (3.4-5.0); Calcium 8.7 mg/dL (8.5-10.1); Potassium 4.1 mmol/L (3.5-5.1)
[2022-03-31 06:15] LABS: Bilirubin, Total 0.6 mg/dL (0.2-1.0); Total Protein 7.7 g/dL (6.4-8.2)
[2022-03-31] MEDS: HCTZ 25 MG TAB PO SCH (08:39)
[2022-03-31] MEDS: QUEtiapine FUMARATE 25 MG TAB PO SCH (08:42)
[2022-03-31] MEDS: LOSARTAN POTASSIUM 25 MG TAB PO SCH (08:42)
[2022-03-31] MEDS: PANTOPRAZOLE 40 MG TAB PO SCH (08:43)
[2022-03-31] MEDS: LORATADINE 10 MG TAB PO SCH (08:43)
[2022-03-31] MEDS: amLODIPine BESYLATE 5 MG TAB PO SCH (08:44)
[2022-03-31] MEDS: APIXABAN 5 MG TAB PO SCH ×2 (08:44→21:54)
[2022-03-31] MEDS: ISOSORBIDE MONONITRATE ER 60 MG TAB PO SCH (08:45)
[2022-03-31] MEDS: SERTRALINE HCL 50 MG TAB PO SCH (08:46)
[2022-03-31] MEDS: DOCUSATE SOD 100 MG CAP PO SCH (08:46)
[2022-03-31] MEDS: ONDANSETRON HCL 4 MG/2 ML VIAL IV PRN ×2 (08:47→17:25)
[2022-03-31] MEDS: TIMOLOL MAL 0.5% OPTH(EYE) SOL 5ML EACHEYE SCH (10:00)
[2022-03-31] MEDS ORDERED: ASPirin 81 mg TAB PO SCH (10:00)
[2022-03-31] MEDS ORDERED: SODIUM CHLORIDE 0.9% 250 ML IV ONE (14:00)
[2022-03-31] MEDS ORDERED: AMLO-489 PO (16:10)
[2022-04-01 04:44] VITALS: BP 156/75
[2022-04-01 06:44] VITALS: BP 149/74
[2022-04-01] MEDS ORDERED: ADENOSINE 57 MG in GIVE UN-DILUTED 0 ML IV ONE (08:15)
[2022-04-01 09:00] VITALS: BP 144/86
[2022-04-01] MEDS: TIMOLOL MAL 0.5% OPTH(EYE) SOL 5ML EACHEYE SCH (10:35)
[2022-04-01] MEDS: LOSARTAN POTASSIUM 25 MG TAB PO SCH (10:36)
[2022-04-01] MEDS: APIXABAN 5 MG TAB PO SCH (10:36)
[2022-04-01] MEDS: DOCUSATE SOD 100 MG CAP PO SCH (10:36)
[2022-04-01] MEDS: LORATADINE 10 MG TAB PO SCH (10:36)
[2022-04-01] MEDS: ISOSORBIDE MONONITRATE ER 60 MG TAB PO SCH (10:37)
[2022-04-01] MEDS: HCTZ 25 MG TAB PO SCH (10:37)
[2022-04-01] MEDS: SERTRALINE HCL 50 MG TAB PO SCH (10:38)
[2022-04-01] MEDS: amLODIPine BESYLATE 5 MG TAB PO SCH (10:38)
[2022-04-01] MEDS: PANTOPRAZOLE 40 MG TAB PO SCH (10:38)
[2022-04-01] MEDS: QUEtiapine FUMARATE 25 MG TAB PO SCH (10:38)
[2022-04-01 12:44] VITALS: BP 133/73
[2022-04-01] MEDS ORDERED: SODIUM CHLORIDE 0.9% 250 ML IV ONE (14:00)
[2022-04-01 16:58] VITALS: BP 115/54
[2022-04-01 17:00] VITALS: BP 83/42
== END 2022-04-01 18:00 | disposition home or self-care (01) | DRG 303 ==
LOC: ER 12:58 → TELE 17:18 → TELE-EAST 23:55
PROVIDERS: ADMIT Nurse Practitioner Family; ATTEND Internal Medicine
DX: I25.10 Atherosclerotic heart disease of native coronary artery without angina pectoris (principal); J98.11 Atelectasis; N17.9 Acute kidney failure, unspecified; E78.5 Hyperlipidemia, unspecified; F32.A Depression, unspecified; G89.29 Other chronic pain; H40.9 Unspecified glaucoma; Z20.822 Contact with and (suspected) exposure to COVID-19; I11.0 Hypertensive heart disease with heart failure; I50.9 Heart failure, unspecified; Z79.01 Long term (current) use of anticoagulants; Z79.82 Long term (current) use of aspirin; Z79.899 Other long term (current) drug therapy; Z82.49 Family history of ischemic heart disease and other diseases of the circulatory system; Z85.42 Personal history of malignant neoplasm of other parts of uterus; Z86.718 Personal history of other venous thrombosis and embolism; Z90.710 Acquired absence of both cervix and uterus; Z98.61 Coronary angioplasty status; Z88.8 Allergy status to other drugs, medicaments and biological substances; I16.0 Hypertensive urgency
CPT/HCPCS: 36415; 71045; 76705; 78452; 80053; 80061; 81001; 83690; 83735; 84484; 85025; 85379; 85610; 86677; 93005; 93017; 96374; G0378; J0153; J2405

== ENCOUNTER 2022-12-29 14:46 | Inpatient (IN) | payer OTHER, MEDICAID ==
[~2022-12-29] VITALS: Ht 160 cm; Wt 69.6 kg
[~2022-12-29 14:46] MED LIST changes: -AMLO-412 PO; +AMLO1TAB22 PO; -CLON0.1T PO; -ISOS1TAB28 PO; -OMEP20TA PO; -QUET50TA PO; -RIZA10TA50 PO; -SERT50TA19 PO
[2022-12-29 14:47] VITALS: BP 196/62
[2022-12-29 15:28] LABS: Basophils # (auto) 0 10 ^3/uL (0-0.2); Basophils % (auto) 0.4 % (0.0-2.0); Eosinophils # (auto) 0.1 10 ^3/uL (0-0.8); Eosinophils % (auto) 1.1 % (0.0-7.0); Hematocrit 47.7 % (36.0-46.0); Lymphocytes % (auto) 34.3 % (10.0-50.0); Mean Corpuscular Hemoglobin 31.8 pg (28.0-32.0); Mean Corpuscular Hgb Conc. 33.5 g/dL (32.0-36.0); Monocytes # (auto) 0.5 10 ^3/uL (0-1.3); Monocytes % (auto) 8.7 % (0.0-12.0); Neutrophils # (auto) 3.2 10 ^3/uL (1.6-8.6); Neutrophils % (auto) 55.5 % (37.0-80.0); Nucleated Red Blood Cells % 0.2 %; Red Blood Cells 5.02 10^6/uL (4.0-5.20); Red Cell Distribution Width 15.4 % (11.8-14.3); White Blood Cell 5.8 10^3/uL (4.4-10.8)
[2022-12-29 15:47] LABS: Albumin 3.7 g/dL (3.4-5.0); Calcium 8.8 mg/dL (8.5-10.1); Magnesium 2.7 mg/dL (1.6-2.6); Potassium 4.6 mmol/L (3.5-5.1)
[2022-12-29 15:50] LABS: INR 1.01 (0.9-1.15); Partial Thromboplastin Time 33.1 sec (24.6-33.4)
[2022-12-29 15:51] LABS: BUN/Creatinine Ratio 23.5 (10.0-20.0); Bilirubin, Total 0.3 mg/dL (0.2-1.0); Total Protein 7.3 g/dL (6.4-8.2)
[2022-12-29 16:05] LABS: Urine Bacteria NONE SEEN /hpf (None Seen); Urine Blood Negative /uL (Negative); Urine Mucus FEW (None Seen); Urine Specific Gravity 1.021 (1.001-1.035); Urine WBC 1 /hpf (0 - 5)
[2022-12-29] MEDS ORDERED: MORPHINE SULFATE INJ 2 MG/ml SYRG IV PRN (22:15)
[2022-12-29] MEDS ORDERED: ONDANSETRON HCL 4 MG/2 ML VIAL IV PRN (22:15)
[2022-12-29] MEDS ORDERED: NITROGLYCERIN 0.4 MG SL TAB SL PRN (22:15)
[2022-12-29] MEDS ORDERED: ACETAMINOPHEN 325 MG TAB PO PRN (22:15)
[2022-12-30] MEDS ORDERED: PANTOPRAZOLE 40 MG TAB PO SCH (10:00)
[2022-12-30] MEDS ORDERED: APIXABAN 5 MG TAB PO SCH (10:00)
[2022-12-30] MEDS ORDERED: amLODIPine BESYLATE 5 MG TAB PO SCH (10:00)
[2022-12-30] MEDS ORDERED: ATORVASTATIN 20 MG TAB PO SCH (22:00)
== END 2022-12-29 23:21 | disposition left against medical advice (07) | DRG 315 ==
LOC: ER 14:46 → TELE 22:14
PROVIDERS: ADMIT Nurse Practitioner; ATTEND Internal Medicine
DX: R00.8 Other abnormalities of heart beat (principal); I13.0 Hypertensive heart and chronic kidney disease with heart failure and stage 1 through stage 4 chronic kidney disease, or unspecified chronic kidney disease; R00.2 Palpitations; N18.9 Chronic kidney disease, unspecified; E78.5 Hyperlipidemia, unspecified; I25.10 Atherosclerotic heart disease of native coronary artery without angina pectoris; Z53.29 Procedure and treatment not carried out because of patient's decision for other reasons; F32.A Depression, unspecified; I50.9 Heart failure, unspecified; M81.0 Age-related osteoporosis without current pathological fracture; Z82.49 Family history of ischemic heart disease and other diseases of the circulatory system; Z95.5 Presence of coronary angioplasty implant and graft; Z85.42 Personal history of malignant neoplasm of other parts of uterus; Z86.718 Personal history of other venous thrombosis and embolism; Z90.710 Acquired absence of both cervix and uterus
CPT/HCPCS: 36415; 71045; 80053; 81001; 83735; 83880; 84484; 85025; 85610; 85730; 93005; G0378